=== PATIENT | female | born 1965 | race Caucasian/White ===

== ENCOUNTER 2024-05-14 11:21 | Emergency (ER) | payer OTHER ==
[~2024-05-14] VITALS: Ht 154.9 cm; Wt 69.0 kg
[~2024-05-14 11:21] MED LIST: AMOXICILLIN500 MG PO; DOXEPIN HCL25 MG PO; DOXYCYCLINE HY100 MG PO; HYDROCHLOROTH12.5 MG PO; KEFLEX500 MG PO; LISINOPRIL20 MG PO; MENOPAUSE SUPPO20 MG PO; PAROXETINE HCL20 MG PO; PYRIDIUM200 MG PO; TYLENOL WITH C1 EACH PO; VISTARIL50 MG PO
[2024-05-14] MEDS ORDERED: KLONOPIN0.5 MG PO (12:15)
[2024-05-14] MEDS ORDERED: PAXIL20 MG PO (12:15)
[2024-05-14] MEDS ORDERED: OMEPRAZOLE20 MG PO (12:15)
[2024-05-14 12:20] LABS: BASOPHILS 0.9 % (0-2); EOSINOPHILS 0.7 % (0-6); HEMATOCRIT 42.4 % (35.0-50.0); HEMOGLOBIN 14.3 g/dL (12.0-18.0); LYMPHOCYTES 18.5 % (24-44); MCH 30.7 (27-36); MCHC 33.7 g/dl (30-36); MCV 91.2 fl (81-99); MONOCYTES 8.8 % (0-12); NEUTROPHILS 71.1 % (39-80); PLATELET COUNT 351 K/uL (140-440); RBC 4.65 M/ul (4.3-5.7); RDW 13.4 (10.5-15.0)
[2024-05-14 12:23] LABS: BILIRUBIN, URINE NEGATIVE (negative); BLOOD/HGB, URINE NEGATIVE (Negative); KETONE, URINE NEGATIVE (Negative); LEUK ESTERASE, URINE NEGATIVE (negative); NITRITE, URINE NEGATIVE (negative)
[2024-05-14 12:40] LABS: ALBUMIN 4.2 g/dL (3.4-5.0); ALBUMIN/GLOBULIN RATIO 1.05 (1.1-2.4); ALKALINE PHOSPHATASE 85 U/L (46-116); ALT (SGPT) 113 U/L (14-59); ANION GAP 15.9 (7-21); AST (SGOT) 79 U/L (15-37); BILIRUBIN, TOTAL 0.7 ng/dL (0.2-1.0); BUN/CREATININE RATIO 8.45 (6.0-28.6); CALCIUM 9.1 mg/dL (8.5-10.1); CARBON DIOXIDE 25 mmol/L (21-32); CHLORIDE 95 mmol/L (98-107); CREATININE, SERUM 0.71 mg/dL (0.55-1.02); GLOMERULAR FILTRATION RATE,EST 100 mL/min (>60); MAGNESIUM 1.7 mg/dL (1.8-2.4); POTASSIUM 3.9 mmol/L (3.5-5.1); PROTEIN, TOTAL 8.2 g/dL (6.4-8.2); UREA NITROGEN 6 mg/dL (7-18)
[2024-05-14 14:21] VITALS: BP 144/98
[2024-05-14 14:26] LABS: INFLUENZA B NAA NEGATIVE (NEGATIVE); RESPIRATORY SYNCYTIAL VIR NAA NEGATIVE (NEGATIVE)
--- NOTE | 2024-05-15 12:56 | EKG ---
[facility] [address] [facility] [place], [place] [address] Signed Normal sinus rhythm Normal ECG No previous ECGs available Confirmed by Petrona Moser ([id number]) on 05/15/2024 12:55:52 PM Electronically Signed By: PETRONA MOSER MD 05/15/24 1256 PATIENT NAME: OCTAVIA KARISSAWILBUR HARPER Electrocardiogram DATE OF : 69 PHYSICIAN: PETRONA MOSER MD REPORT #: [id number] REPORT IS CONFIDENTIAL AND NOT TO BE RELEASED WITHOUT AUTHORIZATION
== END 2024-05-14 14:22 | disposition home or self-care (01) ==
LOC: ED 11:21
PROVIDERS: Emergency Medicine
DX: R53.1 Weakness (principal); F32.A Depression, unspecified; Z79.899 Other long term (current) drug therapy; Z88.2 Allergy status to sulfonamides; Z88.1 Allergy status to other antibiotic agents
CPT/HCPCS: 36415; 80053; 81003; 83735; 84484; 85025; 87502; 93005; 93010; 99285; U0002

== ENCOUNTER 2024-08-16 09:34 | Emergency (ER) | payer OTHER ==
[~2024-08-16] VITALS: Ht 154.9 cm; Wt 72.3 kg
[~2024-08-16 09:34] MED LIST changes: +KLONOPIN0.5 MG PO; +OMEPRAZOLE20 MG PO; +PAXIL20 MG PO
--- OUTSIDE RECORDS SUMMARY | 2024-08-16 09:41 | XMS ---
PreManage Notification: WILBUR MARCANO [employer] Events No recent Security Events currently on file CRITERIA MET - Group Notification CARE PROVIDERS -, [facility] Dentist: Hourly Sales Staff [facility] PHONE: [phone] -[place] Dentist: Hourly Sales Staff [facility] PHONE: [phone] [facility] Current DO PHONE: Unknown Fe has no Care Guidelines for this patient. E.D. VISIT COUNT (12 MO.) 2 FRANCH[facility]KA Edgar TOTAL 2 NOTE: Visits indicate total known visits. ED/UCC VISIT TRACKING (12 MO.) 08/16/2024 09:34 [facility] Bach [facility] TYPE: Emergency COMPLAINT: - NECK SWELLING 05/14/2024 11:22 [facility] [place] TYPE: Emergency COMPLAINT: - LOSS OF APPETITE DIAGNOSES: - Allergy status to other antibiotic agents - Allergy status to sulfonamides - Depression, unspecified - Other middle or intermediate school principal (current) drug therapy - Weakness INPATIENT VISIT TRACKING (12 MO.) No inpatient visits to display in this time frame [email or web address]
[2024-08-16 10:51] LABS: BASOPHILS 0.7 % (0-2); EOSINOPHILS 2.1 % (0-6); HEMOGLOBIN 12.8 g/dL (12.0-18.0); LYMPHOCYTES 27.2 % (24-44); MCH 31.6 (27-36); MCHC 34.6 g/dl (30-36); MCV 91.5 fl (81-99); MONOCYTES 10.3 % (0-12); NEUTROPHILS 59.7 % (39-80); PLATELET COUNT 322 K/uL (140-440); RBC 4.04 M/ul (4.3-5.7); RDW 13.3 (10.5-15.0)
[2024-08-16 10:56] LABS: BILIRUBIN, URINE NEGATIVE (negative); BLOOD/HGB, URINE NEGATIVE (Negative); KETONE, URINE NEGATIVE (Negative); LEUK ESTERASE, URINE NEGATIVE (negative); NITRITE, URINE NEGATIVE (negative)
[2024-08-16 11:13] LABS: ALBUMIN 3.7 g/dL (3.4-5.0); ANION GAP 15.7 (7-21); BILIRUBIN, TOTAL 0.4 ng/dL (0.2-1.0); BUN/CREATININE RATIO 14.45 (6.0-28.6); CALCIUM 8.6 mg/dL (8.5-10.1); CREATININE, SERUM 0.83 mg/dL (0.55-1.02); POTASSIUM 3.7 mmol/L (3.5-5.1); PROTEIN, TOTAL 7.4 g/dL (6.4-8.2); TSH, 3RD GENERATION 1.449 uIU/mL (0.358-3.740)
[2024-08-16 12:00] VITALS: BP 145/92
== END 2024-08-16 12:00 | disposition home or self-care (01) ==
LOC: ED 09:34
PROVIDERS: Emergency Medicine
DX: M54.2 Cervicalgia (principal); E04.1 Nontoxic single thyroid nodule; F17.200 Nicotine dependence, unspecified, uncomplicated; Z88.2 Allergy status to sulfonamides; Z88.1 Allergy status to other antibiotic agents; Z79.899 Other long term (current) drug therapy
CPT/HCPCS: 36415; 70491; 80053; 81003; 84443; 85025; 99283-25; Q9967